=== PATIENT | male | born 1950 | race Caucasian/White ===

== ENCOUNTER 2023-04-06 08:26 | Day surgery (SDC) | payer MEDICARE ==
[~2023-04-06] VITALS: Ht 180.3 cm; Wt 100.2 kg
[~2023-04-06 08:26] MED LIST: AMLO1TAB24 PO; LIDOCAINE 2% 100MG/5ML SDV (FOR ANES.) As Ordered ONE; NS 1,000 ML IV ONE; propofoL 200 MG/20 ML VIAL As Ordered ONE
[2023-04-06] MEDS ORDERED: propofoL 200 MG/20 ML VIAL As Ordered ONE (10:13)
[2023-04-06 10:56] VITALS: BP 164/82; O2SAT 99
== END 2023-04-06 10:50 | disposition home or self-care (01) ==
LOC: M OPP 08:26
PROVIDERS: ATTEND Internal Medicine Gastroenterology
DX: Z86.010 Personal history of colon polyps (principal); K64.8 Other hemorrhoids; K57.30 Diverticulosis of large intestine without perforation or abscess without bleeding; Z87.891 Personal history of nicotine dependence; Z79.899 Other long term (current) drug therapy